=== PATIENT | male | born 1940 | race Caucasian/White ===

== ENCOUNTER → 2018-02-09 | Day surgery (SDC) | payer OTHER, MEDICARE ==
[~2018-02-09] VITALS: Ht 175.3 cm; Wt 89.8 kg
[~2018-02-09] MED LIST: ROXICODONE5 M1 PO
--- NOTE | 2018-02-09 16:02 | Operative Report ---
Operative/Inv Procedure Report Surgery Date: 02/09/18 Name of Procedure: Robotic repair of left recurrent inguinal hernia Pre-Operative Diagnosis: Recurrent left inguinal hernia Post-Operative Diagnosis: Same, indirect Estimated Blood Loss: none Surgeon/Medical Support Assistant: Leana LOUIS,Alexis Urena PA-C Anesthesia: general endotracheal tube IV Fluids: 500 mL crystalloid Implants: 3-D Max medium left mesh Drains: None Specimens: None Complications: None Condition: Excellent, to PACU extubated Operative Indication: Neck is a 77-year-old gentleman who is status post bilateral open inguinal hernias 40 years ago and who presents with a reducible left inguinal bulge in which there is occasional gurgling suggesting bowel contents. He presents for an elective robotic repair Operative/Procedure Note Note: The patient is taken to the operating room placed on the operating table in a supine position. Following an awake timeout he underwent uneventful induction of general endotracheal anesthesia. His arms were tucked by his side and the abdomen clipped widely of hair and prepped with DuraPrep and draped in usual sterile fashion. He had been marked in the preop holding area and the left side ambrose were visible in the field is prepped. Local anesthesia was infiltrated in the supraumbilical area at his prior laparoscopic cholecystectomy port site. A curvilinear incision was made and carried to the fascia. The fascia was opened vertically for short distance to expose the preperitoneal fat was then incised to gain entry safely into the peritoneal cavity. Finger sweep revealed there were no adhesions and the aerocele 12 mm Mccarthy port placed and then a pneumoperitoneum obtained. 8 mm 30 da Beckie scope was inserted and the patient placed in Trendelenburg position 12 we could see the right groin intact repair while the left side had a large indirect opening with protruding colon and pericolonic fat. 28 mm working ports were now placed laterally one on the right side more inferiorly than the left which was just slightly supraumbilical. The da Beckie XI robot was then docked and targeted at the left groin and then instruments placed beginning with a fenestrated bipolar in the left hand and a monopolar dre in the right. Took down some adhesions in the left lower quadrant and anterior abdominal wall being careful not to make any openings into the peritoneum. I could reduce the pericolonic fat and the colon from the internal ring at this was clearly a sliding type hernia in the colon remained perched at the edge of the defect. Created a peritoneal flap 4 cm cephalad to the top of the internal ring. This was carried out laterally and then medially across the medial umbilical ligament area I could identify the epigastric vessels and they were preserved and I dissected laterally on the back of the peritoneum working towards the internal ring and pulled out a small of preperitoneal fat lipoma and continued some traction on the peritoneum to begin to dissected the peritoneum from its attachments inside the muscular internal ring. I could see the cord through the peritoneum quite well. Carried the flap over medially. Notably, the bladder was already partially distended despite the patient having voided just prior to coming into the room I avoided the midline and therefore works from laterally around behind the distended bladder tying the tube grayness over to the symphysis was an excellent plane here with no scarring and no major vessels continued the plane of dissection across the vas where it was deviating medially and freed the peritoneum here area now turned attention back to the defect and was able to pull the entire large indirect sac off of the cord out of the internal ring to beyond where the vas deviated medially. I measured this resulted space now with a plastic ruler and it would accommodate a medium 3-D Max mesh nicely. Mesh was placed into the space and secured with 2-0 Tycron sutures and 2 areas one medially so above the pubic symphysis and the other into Naman's ligament. Laterally, the tail tucked into the space nicely and no sutures were required. Excellent coverage of the entire myopectineal orifice flap was closed with a running 2-0V lock absorbable suture. The ports were then removed under direct vision and the pneumo released. The fascia without emboli Was closed with 2 [id number] sutures of 0 Maxon. Subcutaneous was reapproximated with interrupted 3-0 Vicryl sutures followed by 4-0 Monocryl running septic or skin closures. Steri-Strips 4 x 4's and OpSite were placed. Findings: Large indirect hernia containing sigmoid colon and pericolonic fat, sliding type. Partially distended urinary bladder despite post void Discharge Disposition: PACU
== END ==
LOC: STS 01:46
DX: K40.91 Unilateral inguinal hernia, without obstruction or gangrene, recurrent (principal); I10 Essential (primary) hypertension; E03.9 Hypothyroidism, unspecified; M10.9 Gout, unspecified
CPT/HCPCS: C1781; J0131; J0690; J2250; J3490